=== PATIENT | female | born 1960 | race American Indian/Alaskan Native ===

== ENCOUNTER 2018-01-23 11:56 | Emergency (ER) | payer OTHER, MEDICARE ==
[2018-01-23 12:10] VITALS: BP 140/90
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
[2018-01-23 15:17] LABS: Blood Urea Nitrogen 12 mg/dL (7-17)
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
[2018-01-23] MEDS ORDERED: MOTRIN PO ONE (17:36)
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
== END 2018-01-23 18:02 | disposition home or self-care (01) ==
LOC: ED 11:56
DX: M62.838 Other muscle spasm (principal); V89.2XXA Person injured in unspecified motor-vehicle accident, traffic, initial encounter; Y93.89 Activity, other specified; Y92.89 Other specified places as the place of occurrence of the external cause; Y99.8 Other external cause status
CPT/HCPCS: 36415; 70450; 70498; 82565; 84520; 99284; Q9967